=== PATIENT | female | born 1970 | race Caucasian/White ===

== ENCOUNTER 2016-07-02 01:34 | Emergency (ER) | payer OTHER ==
[~2016-07-02] VITALS: Ht 162.6 cm; Wt 53.5 kg
[~2016-07-02 01:34] MED LIST: AZITHROMYCIN250 M1 PO; ESZOPICLONE2 M1 PO; FLOVENT HFA10.6 GM INH; FLUCONAZOLE200 M1 PO; IMITREX100 M1 PO; LEVAQUIN500 M1 PO; LINZESS145 MC1 PO; LUNESTA2 M1 PO; NAPROXEN500 M2 PO; ROXICODONE15 M1 PO; URSODIOL300 M1 PO; VALIUM10 M1 PO; WELLBUTRIN XL300 M2 PO; XANAX1 M1 PO; ZOLOFT100 M1 PO
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
[2016-07-02 02:35] LABS: ABSOLUTE BASOPHIL COUNT 0 /CUMM (0.0-0.2); ABSOLUTE EOSINOPHIL COUNT 0 /CUMM (0.0-0.7); ABSOLUTE GRANULOCYTE CT 4.2 /CUMM (1.4-6.5); ABSOLUTE LYMPH COUNT 2.2 /CUMM (1.2-3.4); ABSOLUTE MONOCYTE COUNT 0.3 /CUMM (0.10-0.60); BASOPHIL % 0.6 % (0.0-2.0); EOSINOPHIL % 0.3 % (0-5); GRANULOCYTE % 61.8 % (42.2-75.2); HEMATOCRIT 40.6 % (37-47); MEAN CORPUSCULAR HGB 30.9 PG (27.0-31.0); MEAN CORPUSCULAR HGB CONC 33.4 G/DL (33.0-37.0); MEAN CORPUSCULAR VOLUME 92.5 FL (81.0-99.0); MEAN PLATELET VOLUME 6.3 FL (7.4-10.4); PLATELET COUNT 304 /CUMM (130-400); RBC DISTRIBUTION WIDTH 13.5 % (11.5-14.5); RED BLOOD CELL CT 4.39 /CUMM (4.20-5.40); WHITE BLOOD CELL COUNT 6.7 /CUMM (4.8-10.8)
[2016-07-02 02:41] VITALS: BP 91/54
[2016-07-02 02:44] LABS: PTT 30 SEC (25-37)
--- NOTE | 2016-07-02 05:05 | CT SCAN REPORT ---
EXAMINATION: CT CHEST, ABDOMEN AND PELVIS WITH CONTRAST CLINICAL INFORMATION: [facility] CT chest 03/05/2016 COMPARISON: None. TECHNIQUE: Multidetector volumetric CT imaging of the chest, abdomen and pelvis was obtained after the administration of 95 mL of intravenous Optiray without immediate adverse reactions. DLP: 377.13 mGy-cm. FINDINGS: CT CHEST: Lungs: The lungs are clear with no evidence of inflammation or nodules. Mediastinum: The mediastinum is normal. Pleura: There is no pleural effusion. No pleural mass or thickening. Axilla: No lymphadenopathy. CT ABDOMEN AND PELVIS: LIVER, GALLBLADDER, AND BILIARY TREE: The liver is normal in size, shape, and attenuation. No focal hepatic lesion or biliary ductal dilatation is present. The gallbladder is unremarkable with no evidence of radiopaque gallstones, gallbladder wall thickening, or obvious pericholecystic inflammatory changes. PANCREAS: No acute change of the pancreas. No mass. No pancreatic duct dilatation. SPLEEN: Spleen normal in size and contour. No focal lesion. ADRENAL GLANDS: Adrenal glands are normal in size. No focal mass. KIDNEYS AND URETERS: The kidneys are normal in size, shape, and attenuation. No hydronephrosis, hydroureter, or calculi seen. No perinephric stranding. BLADDER: Unremarkable. GASTROINTESTINAL TRACT: The small and large bowel are unremarkable. The appendix is unremarkable. MESENTERY: No focal inflammation. No free fluid. No free air. ABDOMINAL WALL: No significant hernia is appreciated. LYMPH NODES: Normal. VASCULAR: Unremarkable. PELVIC VISCERA: Status post hysterectomy. No adnexal abnormality. OSSEOUS STRUCTURES: No acute change. No fracture. Transpedicular screws L5-S1 with bilateral laminectomy. Grade 1 anterolisthesis of L5 on S1. IMPRESSION: Normal CT of chest abdomen and pelvis.
== END 2016-07-02 04:41 ==
LOC: ERH 01:34
PROVIDERS: Emergency Medicine
DX: M25.512 Pain in left shoulder (principal); R10.9 Unspecified abdominal pain; F10.129 Alcohol abuse with intoxication, unspecified; V47.5XXA Car driver injured in collision with fixed or stationary object in traffic accident, initial encounter
CPT/HCPCS: 74177; 80307; 81001; 96374; 96375; G0480; J0131; J2405

== ENCOUNTER 2017-10-18 09:00 | Inpatient (IN) | payer OTHER, MEDICARE ==
[~2017-10-18] VITALS: Ht 165.1 cm; Wt 49.2 kg
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
[2017-10-18 11:02] LABS: ABSOLUTE BASOPHIL COUNT 0.1 /CUMM (0.0-0.2); ABSOLUTE EOSINOPHIL COUNT 0 /CUMM (0.0-0.7); ABSOLUTE GRANULOCYTE CT 2.4 /CUMM (1.4-6.5); ABSOLUTE LYMPH COUNT 1.1 /CUMM (1.2-3.4); ABSOLUTE MONOCYTE COUNT 0.3 /CUMM (0.10-0.60); BASOPHIL % 1.3 % (0.0-2.0); EOSINOPHIL % 1.3 % (0-5); GRANULOCYTE % 60.9 % (42.2-75.2); HEMATOCRIT 39.8 % (37-47); MEAN CORPUSCULAR HGB 31.8 PG (27.0-31.0); MEAN CORPUSCULAR HGB CONC 34.9 G/DL (33.0-37.0); MEAN CORPUSCULAR VOLUME 91.2 FL (81.0-99.0); MEAN PLATELET VOLUME 6.8 FL (7.4-10.4); PLATELET COUNT 325 /CUMM (130-400); RBC DISTRIBUTION WIDTH 12.2 % (11.5-14.5); RED BLOOD CELL CT 4.37 /CUMM (4.20-5.40); WHITE BLOOD CELL COUNT 3.9 /CUMM (4.8-10.8)
--- NOTE | 2017-10-18 11:27 | RADIOLOGY REPORT ---
EXAMINATION: XR CHEST CLINICAL INFORMATION: Cough, malaise COMPARISON: 03/08/2016 chest x-ray, chest CT from 07/02/2016 TECHNIQUE: 2 views of the chest were obtained. FINDINGS: The cardiomediastinal silhouette appears normal. The lungs are clear. No consolidation, pulmonary edema, pleural effusion, pneumothorax. Minor degenerative change of the spine without evidence of acute osseous abnormality. IMPRESSION: No acute abnormality.
--- NOTE | 2017-10-18 13:42 | CT SCAN REPORT ---
EXAMINATION: CT LUMBAR SPINE WITHOUT CONTRAST CLINICAL INFORMATION: Low back pain. COMPARISON: CT of the abdomen and pelvis from 07/02/2016. CT lumbar spine from 03/05/2016. TECHNIQUE: Helical non-contrast CT images were obtained through the lumbar spine and 1.25 and 2.5 mm axial reconstructions were reviewed along with sagittal and coronal MPRs. DLP: 376 mGy-cm FINDINGS: There are 5 nonrib-bearing lumbar type vertebral bodies. Vertebral body height is maintained. There is stable 2 to 3 mm of anterolisthesis of L5 on S1. Otherwise sagittal alignment is maintained. There are stable changes after discectomy, interbody fusion device placement, posterior decompression and posterior instrumented fusion at L5-S1 with posterior instrumented fusion comprised of rods anchored by paired pedicle screws. There is no evidence of loosening along the pedicle screws. There is stable mild subsidence along the endplates with moderate endplate sclerosis, the appearance of which is unchanged from 2016. There is incomplete osseous bridging visualized across the interbody fusion device, stable. Hardware creates streak artifact at this level. The nonsurgical discs spaces are maintained. There is mild endplate spurring at L2-L3. The visualized aorta is normal in caliber. No evidence of adenopathy. The visualized abdominal viscera appear unremarkable. Paraspinal muscle bulk is maintained. The imaged SI joints appear unremarkable. SPINAL LEVELS: T12-L1, L1-L2, L2-L3, L3-L4: No contour abnormality of the discs. No canal or foraminal stenosis. Mild facet hypertrophy at L3-L4. L4-L5: There is fairly extensive streak artifact at this level due to the hardware. A disc bulges visualized without evidence of significant canal or foraminal stenosis. Mild facet hypertrophy. L5-S1: There is streak artifact obscuring the canal. As above there is discectomy, interbody fusion device placement, posterior decompression and posterior instrumented fusion. Minor anterolisthesis is stable. There is asymmetric posterior osteophytic ridging on the right relative to the left which appears to result in mild bony foraminal stenosis on the right which appears unchanged from 2016. IMPRESSION: 1. No acute abnormality. 2. L5-S1: Discectomy, interbody fusion device placement, posterior decompression and posterior instrumented fusion, stable from 2016. There is mild subsidence along the endplates with moderate endplate sclerosis, unchanged. There is a similar amount of osseous bridging across the interbody fusion device. Asymmetric posterior osteophytic ridging on the right results in mild bony right-sided foraminal stenosis, stable. Otherwise the canal and foramina are obscured by streak artifact from the hardware. 3. Elsewhere stable mild multilevel spondylosis.
--- NOTE | 2017-10-18 13:43 | CT SCAN REPORT ---
EXAMINATION: CT HEAD WITHOUT CONTRAST CLINICAL INFORMATION: Headache COMPARISON: 03/05/2016, 07/17/2011, 06/09/2006 TECHNIQUE: Contiguous axial imaging was performed from the skull base to vertex without intravenous administration of contrast. DLP: 605 mGy-cm FINDINGS: There is a small 2 to 3 mm oval focus of density in the left frontal subcortical white matter without surrounding edema. Due to differences in slice selection it is difficult to definitively identify this structure on priors. Otherwise attenuation within the brain is normal. The ventricles, sulci, and extra-axial CSF spaces are normal in caliber and configuration. No extra-axial collection, mass effect, or shift the normally midline structures. No evolving territorial infarct. No acute osseous abnormality. The imaged paranasal sinuses, mastoid air cells and middle ear cavities are clear. The temporomandibular joints articulate normally. The visualized soft tissues appear unremarkable. IMPRESSION: A 2 to 3 mm density in the subcortical left frontal lobe without surrounding edema or mass effect, nonspecific. This may reflect a tiny cavernoma or microhemorrhage. This critical result was communicated with Dr. Solitario at 13:30 on 10/18/2017 and the content and urgency was understood at the time of direct communication.
--- NOTE | 2017-10-18 14:28 | History & Physical ---
Genny Soler 10/18/17 1428: General Information and HPI History of Present Illness: Ms. Ross is a 45-year-old female with a past medical history of chronic back pain status post laminectomy (2014), spinal fusion, recurrent Lyme disease being treated for the last 6 months with doxycycline and weekly penicillin G ( last dose yesterday), Hidalgo's palsy, anxiety, depression, previously admitted for sepsis in 2015 secondary to an infected PICC line who presents to the ED for a headache. Patient reports she has had a headache for the past 3 weeks but states "I'm not a doctor person" therefore it took her up until now to seek medical treatment. Her headaches feels like a heartbeat in her head and it feels like "so much pressure like am going to explode". She reports she had a Botox injection approximately 6 weeks ago in her forehead. She has facial pain, hyperalgesia, and neck pain that is exacerbated by neck flexion and with widening of the jaw. Yesterday she noticed left sided facial drooping and twitches which she reports she normally gets with the Hidalgo's palsy. She has had blurry vision for the past 2 weeks and vertigo for a day and a half. Her vertigo is exacerbated by gabapentin and therefore reports she has stopped taking it. She has diffused joint pain. She reports leg pain up to the waist recently and this morning was on her way to the bathroom her "legs gave out". She reports she feels like she has the flu. Approximately 4 weeks ago she had a tick removed from her umbilicus. For the past 6 months she has been nauseous. She has a bowel movement once every 3 weeks. She has lost 10 pounds in the past few weeks. She has 2 cats in which she cares for herself. In the ED she reports her legs gave out again on her way to the restroom. She received 1 dose of IV Methyprednisolone 125 mg, Ketorolac 30 mg and 1L NS IVF Allergies/Medications Allergies: Coded Allergies: No Known Allergies (03/05/16) Observation Initial Note - I have personally examined LUISITO ROSS on 10/18/17 at 1840. 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 self Services at Home: visiting nurses Primary Language: Irish Review of Systems Review of Systems Constitutional: Reports: see HPI. Exam & Diagnostic Data Last 24 Hrs of Vital Signs/I&O Vital Signs Date Time Temp Pulse Resp B/P B/P Pulse O2 O2 Flow FiO2 Mean Ox Delivery Rate 10/18 1243 97.7 68 18 93/54 99 10/18 0906 98.6 74 18 106/67 98 Room Air Intake & Output 10/18 1600 10/18 0800 / 0000 Intake Total Output Total Balance Patient 108 lb Weight Weight Reported by Patient Measurement Method Physical Exam General Appearance Alert, Oriented X3, Cooperative, No Acute Distress Skin Chest tenderness HEENT Atraumatic, EOMI, Mucous Membr. moist/pink, photosensitivity Neck Supple, No JVD, No thryomegaly, cervical and mandibular lymphadenopathy Cardiovascular Regular Rate, Normal S1, Normal S2, No Murmurs Lungs BL wheezing Abdomen Soft, No Masses, tender to light palpation Neurological Normal Speech, Strength at 5/5 X4 Ext, Normal Tone, Cranial Nerves 3-12 NL, Decreased sensation on left side, 2+ reflexes BUE, absent reflexs BLE Extremities Motor 2/5 BUE, 1/5 BLE Last 24 Hrs of Labs/Riley: Laboratory Tests 10/18/17 1050: Anion Gap 12, Estimated GFR > 60, BUN/Creatinine Ratio 25.0, Glucose 92, Calcium 9.6, Total Bilirubin 0.6, AST 22, ALT 21, Alkaline Phosphatase 37, Total Protein 7.5, Albumin 4.5, Globulin 3.0, Albumin/Globulin Ratio 1.5, TSH &T3 &Free T4 Intrp 1.900, Total Beta HCG NEGATIVE, CBC w Diff NO MAN DIFF REQ, RBC 4.37, MCV 91.2, MCH 31.8 H, MCHC 34.9, RDW 12.2, MPV 6.8 L, Gran % 60.9, Lymphocytes % 28.4, Monocytes % 8.1, Eosinophils % 1.3, Basophils % 1.3, Absolute Granulocytes 2.4, Absolute Lymphocytes 1.1 L, Absolute Monocytes 0.3, Absolute Eosinophils 0 , Absolute Basophils 0.1, ESR Westergren 10, Lyme Disease Antibody Pending 10/18/17 1014: Urine Color YEL, Urine Clarity CLDY H, Urine pH 6.0, Ur Specific [place] 1.025, Urine Protein NEG, Urine Ketones 15 H, Urine Nitrite NEG, Urine Bilirubin NEG@ ICTO, Urine Urobilinogen 0.2, Ur Leukocyte Esterase TRACE H, Ur Microscopic SEDIMENT EXAMINED, Urine WBC 5-10 H, Ur Epithelial Cells MANY H, Urine Bacteria MANY H, Urine Hemoglobin NEG, Urine Glucose NEG Diagnostic Data CXR Results FINDINGS: The cardiomediastinal silhouette appears normal. The lungs are clear. No consolidation, pulmonary edema, pleural effusion, pneumothorax. Minor degenerative change of the spine without evidence of acute osseous abnormality. IMPRESSION: No acute abnormality. Other Results CT HEAD WO IV CONTRAST IMPRESSION: A 2 to 3 mm density in the subcortical left frontal lobe without surrounding edema or mass effect, nonspecific. This may reflect a tiny cavernoma or microhemorrhage. This critical result was communicated with Dr. Solitario at 13:30 on 10/18/2017 and the content and urgency was understood at the time of direct communication. CT LUMB SPINE WO IV CONTRAST IMPRESSION: 1. No acute abnormality. 2. L5-S1: Discectomy, interbody fusion device placement, posterior decompression and posterior instrumented fusion, stable from 2016. There is mild subsidence along the endplates with moderate endplate sclerosis, unchanged. There is a similar amount of osseous bridging across the interbody fusion device. Asymmetric posterior osteophytic ridging on the right results in mild bony right-sided foraminal stenosis, stable. Otherwise the canal and foramina are obscured by streak artifact from the hardware. 3. Elsewhere stable mild multilevel spondylosis. Assessment/Plan Assessment: Ms. Ross is a 45-year-old female with a past medical history of chronic back pain status post laminectomy (2014), spinal fusion, recurrent Lyme disease who presents to the ED with CAMACHO x [address] imaging showed a 2 to 3 mm density in the subcortical left frontal lobe without surrounding edema or mass effect #Headache - DD: subacute hemorrhage, mass, meningitis #Generalized pain and weakness - DD: 2/2 recurrent Lyme, chronic back pain Plan: Place on 23 hour OBS for further evaluation and management Neurochecks every 2 hours MRI brain Monospot test for LAD We will consider a neurosurgery consult pending MRI results Strep pneumonia and legionella urine antigen We will hold off an LP for now because symptoms less likely reflect meningitis We will consider Dexamathasone if signs of cerebral edema We will hold off pharmacologic DVT prophylaxis due to her CT findings We will hold her home antibiotics for now Pain: Hydromorphone Diet: Regular DVT prophylaxis: ALPS Code: FULL As Ranked By This Provider Problem List: 1. Headache Core Measures/Misc (01/28) Acute Coronary Syndrome ACS Diagnosis: No Congestive Heart Failure Congestive Heart Failure Diagnosis No Cerebrovascular Accident CVA/TIA Diagnosis: No VTE (View Protocol) VTE Risk Factors Age>40 No Mechanical VTE Prophylaxis d/t N/A MechProphylax Ordered No VTE Pharm Prophylaxis d/t Medical Contraindication Comment: CT findings Sepsis (View protocol) Sepsis Present: No If YES complete Sepsis Event Note If YES complete Sepsis Event Note Jose Miguel TORIBIO,[facility] 10/18/17 1519: Core Measures/Misc (01/28) Sepsis (View protocol) If YES complete Sepsis Event Note If YES complete Sepsis Event Note Attending MD Review Statement Attending Statement Attending MD Statement: examined this patient, discuss w/resident/PA/REVIT DRAFTER, agreed w/resident/PA/REVIT DRAFTER, discussed with family, reviewed EMR data (avail), discussed with nursing, discussed with case mgmt, reviewed images, amended to note Attending Assessment/Plan: 47 y/o F with pmh sig for chronic back pain status post laminectomy (2014), spinal fusion, Lyme disease, Hidalgo's palsy, anxiety, depression has been kept on multiple antibiotics for treatment of Lyme. Has had multiple testing for Lyme and other tickborne illnesses. Has been admitted to [facility] with prior PICC line related sepsis. Presented this time with the intractable headache with feeling off blurred vision. She claims that she always has joint pains, neck pain, back pain. This headache started about 3 weeks ago. It is more worse over the last couple of days. She also claims that her joints are swollen. She was recently started on rifampin by her doctor for unknown reason. She also gets Bicillin injections on a weekly basis. She was also feeling somewhat weak in her legs and claims that her legs gave out today. She has two cats. CT of the head in the emergency room shows A 2 to 3 mm density in the subcortical left frontal lobe without surrounding edema or mass effect, nonspecific. This may reflect a tiny cavernoma or microhemorrhage. Vital Signs Date Time Temp Pulse Resp B/P B/P Pulse O2 O2 Flow FiO2 Mean Ox Delivery Rate 10/18 1243 97.7 68 18 93/54 99 10/18 0906 98.6 74 18 106/67 98 Room Air on exam; aox3, nad. heent: + enlarged cervical LNs. cv; s1,s2. rrr resp; clear abd; soft, nt,bs+ ext; no edema neuro: Overall decreaed strength in b.l le and absent reflexes. Upper ext Strength 5/5 wih symmetrical reflexes. Meningeal signs negative. Laboratory Tests 10/18 1050 Chemistry Sodium (137 - 145 mmol/L) 141 Potassium (3.5 - 5.1 mmol/L) 4.3 Chloride (98 - 107 mmol/L) 101 Carbon Dioxide (22 - 30 mmol/L) 28 Anion Gap (5 - 16) 12 BUN (7 - 17 mg/dL) 15 Creatinine (0.5 - 1.0 mg/dL) 0.6 Estimated GFR (>60 ml/min) > 60 BUN/Creatinine Ratio (7 - 25 %) 25.0 Glucose (65 - 99 mg/dL) 92 Calcium (8.4 - 10.2 mg/dL) 9.6 Total Bilirubin (0.2 - 1.3 mg/dL) 0.6 AST (14 - 36 U/L) 22 ALT (9 - 52 U/L) 21 Alkaline Phosphatase (<127 U/L) 37 Total Protein (6.3 - 8.2 g/dL) 7.5 Albumin (3.5 - 5.0 g/dL) 4.5 Globulin (1.9 - 4.2 gm/dL) 3.0 Albumin/Globulin Ratio (1.1 - 2.2 %) 1.5 TSH &T3 &Free T4 Intrp (0.270 - 4.20 uIU/mL) 1.900 Total Beta HCG (NEGATIVE) NEGATIVE Hematology CBC w Diff NO MAN DIFF REQ WBC (4.8 - 10.8 /CUMM) 3.9 L RBC (4.20 - 5.40 /CUMM) 4.37 Hgb (12.0 - 16.0 G/DL) 13.9 Hct (37 - 47 %) 39.8 MCV (81.0 - 99.0 FL) 91.2 MCH (27.0 - 31.0 PG) 31.8 H MCHC (33.0 - 37.0 G/DL) 34.9 RDW (11.5 - 14.5 %) 12.2 Plt Count (130 - 400 /CUMM) 325 MPV (7.4 - 10.4 FL) 6.8 L Gran % (42.2 - 75.2 %) 60.9 Lymphocytes % (20.5 - 51.1 %) 28.4 Monocytes % (1.7 - 9.3 %) 8.1 Eosinophils % (0 - 5 %) 1.3 Basophils % (0.0 - 2.0 %) 1.3 Absolute Granulocytes (1.4 - 6.5 /CUMM) 2.4 Absolute Lymphocytes (1.2 - 3.4 /CUMM) 1.1 L Absolute Monocytes (0.10 - 0.60 /CUMM) 0.3 Absolute Eosinophils (0.0 - 0.7 /CUMM) 0 Absolute Basophils (0.0 - 0.2 /CUMM) 0.1 ESR Westergren (0 - 20 MM) 10 Serology Lyme Disease Antibody Pending 10/18 1014 Urines Urine Color (YEL,AMB,STR) YEL Urine Clarity (CLEAR) CLDY H Urine pH (5.0 - 8.0) 6.0 Ur Specific [place] (1.001 - 1.035) 1.025 Urine Protein (NEG,<30 MG/DL) NEG Urine Ketones (NEG) 15 H Urine Nitrite (NEG) NEG Urine Bilirubin (NEG) NEG@ICTO Urine Urobilinogen (0.1 - 1.0 EU/dl) 0.2 Ur Leukocyte Esterase (NEG) TRACE H Ur Microscopic SEDIMENT EXAMINED Urine WBC (0 - 2 /HPF) 5-10 H Ur Epithelial Cells (NONE,FEW) MANY H Urine Bacteria (NEG/NONE) MANY H Urine Hemoglobin (NEG) NEG Urine Glucose (N MG/DL) NEG CT head: A 2 to 3 mm density in the subcortical left frontal lobe without surrounding edema or mass effect, nonspecific. This may reflect a tiny cavernoma or microhemorrhage. CXR: No acute process. CT lumbar spine. IMPRESSION: 1. No acute abnormality. 2. L5-S1: Discectomy, interbody fusion device placement, posterior decompression and posterior instrumented fusion, stable from 2016. There is mild subsidence along the endplates with moderate endplate sclerosis, unchanged. There is a similar amount of osseous bridging across the interbody fusion device. Asymmetric posterior osteophytic ridging on the right results in mild bony right-sided foraminal stenosis, stable. Otherwise the canal and foramina are obscured by streak artifact from the hardware. 3. Elsewhere stable mild multilevel spondylosis. A/P; 47 y/o F with pmh sig for chronic back pain status post laminectomy (2014), spinal fusion, Lyme disease, Hidalgo's palsy, anxiety, depression has been kept on multiple antibiotics for treatment of Lyme. Has had multiple testing for Lyme and other tickborne illnesses. Has been admitted to [facility] with prior PICC line related sepsis, admitted this time with intractable headache with photophobia and head CT showing small subcortical frontal lobe lesion. Meningitis less likley as patient without altered mental state, no meningeal signs and sx have been going from last 3 weeks and severe one x 2 days. Patient admitted to medicine. We'll obtain brain MRI. Pending results, will consider neurosurgical consult. We'll hold off on any steroids for now. Will stop all of her antibiotics that she is taking including doxycycline, tetracycline, azithromycin, rifampin. She also was taking trazodone and gabapentin as needed. That will also be stopped. She does take Valium as needed which can be continued on as-needed basis. We'll check her rapid strep, Monospot tests due to enlarged cervical lymph nodes. We'll try to control her headache with Dilaudid. Will get physical therapy to come and work with her. She will be on mechanical DVT prophylaxis. Full code. Jillian Oliveira MD 10/18/17 7681: General Information and HPI Allergies/Medications Home Med list Diazepam (Valium) 10 MG TABLET 0.5 TAB PO BIDP PRN PAIN (Reported) Doxycycline Hyclate 100 MG TABLET 1 TAB PO BID LYME (Reported) Gabapentin Enacarbil (Horizant) 600 MG TABLET.ER 1 TAB PO TID PAIN (Reported) Rifampin 150 MG CAPSULE 1 TAB PO DAILY LYME (Reported) Tetracycline HCl 250 MG CAPSULE 3 TAB PO BID LYME (Reported) Trazodone HCl 50 MG TABLET 1 TAB PO TID LYME (Reported) Core Measures/Misc (01/28) Sepsis (View protocol) If YES complete Sepsis Event Note If YES complete Sepsis Event Note Resident Review Statement Resident Statement: examined this patient, 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 She comes in for chief complaint of headache. She states that for the past 3 weeks she has experienced headache that she describes as a pressure sensation that feels "like my head is about to explode." She saysthe camacho is all over her head and in also in her face. In addition, her headache is associated with diplopia for the past 2 weeks and vertigo for the last half day. She states that she is photophobic and this a.m. when she went to use the bathroom her legs collapsed under her due to weakness. The headache has been getting worse in intensity the past 3 weeks. In addition she states that she has had about 6 months of nausea and lost 10 pounds in the last few weeks. She also endorses cough and chills without fever or sore throat. Patient has been treated with a very unusual regimen over the last several months. She is currently getting Bicillin injections every week. Additionally she is getting Botox for Hidalgo's palsy, most recent injection about 6 weeks ago. She saw her PCP in [place] yesterday who started regimen of azithromycin, diazepam, doxycycline, Diflucan, gabapentin, rifampin, tetracycline, and trazodone for some kind of Lyme co-infection treatment. Patient states that she is not very compliant w/ her regimen and has taking doxycycline for several months, took 1 dose of rifampin, very infrequently takes gabapentin, infrequently uses medical marijuana, and got penicillin G injection one week ago. Patient brought in results of her tick panel which was negative for Ehrlichia, and babesiosis. She denies IV drug abuse, smoking but does endorse social is of alcohol. She does use medical marijuana. She has 2 cats at home and had a tick removed from her bellybutton about a week ago. Note she has had ICU admission at for sepsis and hx of infected PICC line for abx for Lyme. Physical exam Vitals: 98.6, 68-74, 18, 93/54-106/67, 98% on room air HEENT: Pt photophobic and would not allow for light to be shined in her eyes without looking away. EOMI. CN 3-12 WNL. No facial droop noted. No deviation of tongue or uvula. Sensation symmetric on face. No erythema in pharynx or tonsilar exudates. She does have sig lymphadenopathy in cervical and submandibular region. Cardiovascular: Nml s1/s2; no murmurs Skin: no erythema, rash or wounds present. Respiratory:Wheezy in all lung filds. No crackles GI: BSX4, No tenderness on palpation. EXT:Slightly diminished sensation in bilat LE. Stength 2-3/5 in LE due to pain, Strength 4/5 in UE. NEURO: Cranial nerves II through XII within normal limits-taking into account Botox on forehead. Sensation symmetric and face. Perhaps some diminished sensation in lower extremities. Range of motion normal in all extremities. She did have some weakness due to pain, about 4-5 in upper and lower extremities. No reflexes in knee, but upper extremity reflexes brisk and intact. Negative clonus. Negative Kernig and Brudzinski sign but she does describe pain in her hips when I flexed her leg. Labs: White count 3.9, platelet 325. ESR 10. BMP within normal. Negative LFT, negative TFT, negative beta hCG. UA: Trace leukocyte esterase, ketones positive, 5-10 white blood cell, many epithelial cells, many bacteria. Chest x-ray with no acute intrathoracic pathology [place] CT of head: Showed a 2- 3 mm density in left frontal lobe, possible tiny cavernoma versus microhemorrhage. Assessment: This is a 47-year-old female with past medical history significant for chronic back pain status post laminectomy in 2015, and failure of back surgery with chronic pain and lower extremity, and diagnosis of Lyme disease followed by a complicated treatment regimen for several years. She comes in for chief complaint of headache that seems to be acute on chronic in nature. She saw her PCP last week and had a tick removed. Just in the last 6 weeks she has had Botox in her face, weekly Bicillin injections and yesterday was started on a 5 med antibiotic regimen. With so many recent changes it is difficult to attribute her symptoms of headache and weakness to any single etiology. However, she is afebrile, alert and oriented 3, and without nuchal rigidity. She has no focal neurologic deficits other than weakness on physical exam but CAT scan shows 2-3 millimeter density in left frontal lobe. It is unclear if this CAT scan finding is related to her symptoms as she is describing 6 months of diffuse headache that involves her face and her head. We will further evaluate her symptoms while inpatient on the general medicine floor. Problem list: 1. Headache 2. 2-3 mm density in left frontal lobe 3. Leukopenia 4. Cervical lymphadenopathy 5. History of Lyme disease with Hidalgo's palsy and prolonged unusual treatment regimen 6. Chronic back pain Plan: 1. Headache: Differential diagnosis includes medication side effect,cavernoma w / hemorrhage, migraine, Lyme meningitis, or toxoplasma given that she has cats. She is afebrile, without focal deficits. Her new symptoms are worsening headache and some weakness in her legs. She had no reflexes in her knees but unsure if this is due to back surgery. If her weakness worsens, given recent URI will keep low threshold to workup for demyelinating neuropathy. * Neuro check * Pain regimen with Dilaudid * MRI with and without gadolinium of head * If MRI indicates, we'll obtain neurology or neurosurgical input * We'll defer a lumbar puncture at this time * Avoid pharmacologic prophylaxis * Urine tox 2. Leukopenia: Unsure if this is medication side effect from the numerous meds that she is taking. * Monitor CBC * Note that in ED patient got 125 of IV Solu-Medrol. This will likely confound the picture and subsequent CBCs. * We'll check HIV * Hold off all antibiotics * Blood cultures 2 * Urine culture 3. Lymphadenopathy: Patient has palpable lymphadenopathy that is painful. There is no tonsillar exudate or erythema. She does have chronic cough. This point will hold off all treatment as she has had wide and inconsistent exposure to antibiotics. * Legionella, strep, monospot * Monitor clinically 4. History of Lyme disease: Given history of recent tick bite we will do a Lyme panel. * Hold off on all medications 5. Chronic back pain: * Pain management Regular diet Mechanical prophylaxis Full code
[2017-10-18] MEDS ORDERED: DOXYCYCLINE HY100 M4 PO (16:23)
[2017-10-18] MEDS ORDERED: HORIZANT600 M1 PO (16:23)
[2017-10-18] MEDS ORDERED: RIFAMPIN150 MG PO (16:24)
[2017-10-18] MEDS ORDERED: TETRACYCLINE H250 MG PO (16:24)
[2017-10-18] MEDS ORDERED: TRAZODONE HCL50 M1 PO (16:25)
[2017-10-18 18:10] VITALS: BP 116/70
--- NOTE | 2017-10-18 18:20 | MRI REPORT ---
MR BRAIN WITHOUT AND WITH CONTRAST CLINICAL INFORMATION: Headache. Question bleed on CT. COMPARISON: Head CT performed earlier the same day. TECHNIQUE: MRI of the brain was obtained using routine sequences before and after the intravenous administration of 5 mL of Gadavist. FINDINGS: The small focus of increased density within the left subinsular region appreciated on today's earlier head CT exhibits susceptibility artifact and no associated parenchymal signal abnormality, findings most suggestive of a small focus of cavernoma. No pathologic enhancement and no evidence of acute intracranial hemorrhage. There is no hydrocephalus, extra-axial surface collection, or herniation. No parenchymal signal abnormality. The major flow voids at the skull base are preserved. There is no acute infarct on diffusion-weighted imaging. The midline structures are normal. The cerebellar tonsils are normally positioned. The cerebellum and brainstem are normal. The craniocervical junction is normal. Osseous marrow signal intensity is homogenous. The visualized soft tissues are unremarkable. 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 No pathologic enhancement and no MRI evidence of acute intracranial hemorrhage.
[2017-10-18 23:03] VITALS: BP 100/59
[2017-10-19 05:33] VITALS: BP 93/63
[2017-10-19 06:53] VITALS: BP 93/63
--- NOTE | 2017-10-19 07:08 | PN-Observation ---
Observation Note Observation Note _ I have personally examined LUISITO ROSS. her disposition is uncertain at this time. Before a determination can be made, she requires continued observation for the following reasons headache. Assessment/Plan Medical Assessment: Ms. Ross is a 45-year-old female with a past medical history of chronic back pain status post laminectomy (2014), spinal fusion, recurrent Lyme disease who presents to the ED with CAMACHO x [address] imaging showed a 2 to 3 mm density in the subcortical left frontal lobe without surrounding edema or mass effect #Headache #Generalized pain and weakness Plan: MRI brain showed carvenoma Monospot test negative LP not suspicious for meningitis We will hold off pharmacologic DVT prophylaxis due to her CT findings We will hold her home antibiotics for now Lyme titers positive but given her history of positive Lyme it may be persistently positive in some patient NS IVF @ 50cc/hr Pain: Hydromorphone ID recommendations appreciated Neuro consult Diet: Regular DVT prophylaxis: ALPS Code: FULL Problem List: 1. Headache Subjective Follow-up For: Headache History of Lyme Small cavernoma Subjective: Patient reports she feels the same as yesterday. She has a persistent CAMACHO and refuses to take her pain meds because of poor food intake. She feels as though the pain meds are making her hallucinate Review of Systems Constitutional: Reports: see HPI. Objective Last 24 Hrs of Vital Signs/I&O Vital Signs Date Time Temp Pulse Resp B/P B/P Pulse O2 O2 Flow FiO2 Mean Ox Delivery Rate 10/19 1455 98.2 77 18 96/55 100 Room Air /08 0653 97.8 71 18 93/63 99 Room Air /08 0533 97.8 71 18 93/63 99 Room Air 06/07 2303 98.3 72 18 100/59 100 Room Air 06/07 1810 97.8 85 18 116/70 100 Intake & Output /08 1600 06/08 0800 06/08 0000 Intake Total 640 20 600 Output Total 250 Balance 640 -230 600 Intake, IV 400 20 Intake, Oral 240 0 600 Output, Urine 250 Patient 108 lb 108 lb Weight Weight Reported by Patient Measurement Method Physical Exam General Appearance: Alert, Oriented X3, Cooperative, No Acute Distress Cardiovascular: Regular Rate, Normal S1, Normal S2, No Murmurs Lungs: Clear to Auscultation, Normal Air Movement Abdomen: Normal Bowel Sounds, Soft, No Tenderness Current Medications: Current Medications Sig/Madeleine Start time Last Medication Dose Route Stop Time Status Admin Acetaminophen 650 MG Q6P PRN 10/18 1430 AC PO Dextrose/Sodium 1,000 ML Q20H 10/19 0830 DC 10/19 Chloride IV 0829 Diazepam 5 MG BID PRN 10/18 1615 AC 10/19 PO 0839 Diphenhydramine HCl 25 MG ONCE ONE 10/19 0200 DC 10/19 PO 10/19 0201 0155 Hydromorphone HCl 0.2 MG Q4P PRN 10/18 1430 AC 10/19 IV 1458 Lidocaine 0 .STK-MED ONE 10/19 1321 DC .ROUTE Oxycodone/ 1 TAB Q6P PRN 10/18 1430 AC 10/18 Acetaminophen PO 1854 Patient Medication 1 ED ONE ONE 10/19 0930 DC Teaching ED 10/19 0931 Ramelteon 8 MG 2100 10/18 2100 AC 10/18 PO 2302 Sodium Chloride 1,000 ML Q20H 10/19 0830 CAN IV Last 24 Hrs of Labs/Mics: Laboratory Tests 10/19/17 1410: CSF Glucose 68, CSF Total Protein 32 10/19/17 1410: CSF WBC 2, CSF RBC 3 H, CSF Comment 10/19/17 1315: Fluid WBC Cancelled, Fld Total RBCs Counted Cancelled 10/19/17 1315: Fluid Glucose Cancelled, Fluid Total Protein Cancelled 10/19/17 0940: PT 11.6, INR 1.06 10/19/17 0835: Infectious [place] Titer Cancelled 10/19/17 0601: Anion Gap 11, Estimated GFR > 60, BUN/Creatinine Ratio 21.7, CBC w Diff NO MAN DIFF REQ, RBC 3.85 L, MCV 91.6, MCH 31.4 H, MCHC 34.3, RDW 12.5, MPV 7.4, Gran % 64.5, Lymphocytes % 24.8, Monocytes % 9.6 H, Eosinophils % 0.5, Basophils % 0.6, Absolute Granulocytes 5.2, Absolute Lymphocytes 2.0, Absolute Monocytes 0.8 H, Absolute Eosinophils 0, Absolute Basophils 0 10/18/172044: Infectious [place] Titer NEGATIVE 10/18/172044: HIV 1&2 Ab Western Blot NONREACTIVE Microbiology 10/19 1410 CENT N S: CSF Culture - RES 10/19 1410 CENT N S: Gram Stain - RES 10/19 1315 BODY FLUID: Body Fluid Culture - CAN Cancelled: CSF 10/19 1314 BODY FLUID: Gram Stain - CAN Cancelled: CSF 10/19 2055 BLOOD: Blood Culture - RES 10/18 2044 BLOOD: Blood Culture - RES
--- NOTE | 2017-10-19 07:26 | PN- Student ---
Subjective Subjective: Pt. is a 47 y/o female with a history of prior laminectomy and difficult to treat Lyme disease who presents for worsening headache and new onset leg weakness. She states that the headache began two weeks ago and has become intollerably painful as of the morning of 10/18/17. She had tried over the counter medications as well as medical marijuana, and prescription strength ibuprofen to improve the headache and has seen no improvement. Her headache has begun to radiate to her maxillary sinuses and maxillary gingiva. The headache upon presentation to the ER was 10/10 and throbbing "like a heart beat". Associated with the headache she has been experiencing double vision, increased thirst with increased urination, dry heaving for the last three days, reported light sensitivity, pain with eye movement, decreased appetite, acute exasperation of chronic dry cough, increased tenderness in her neck, and exasperation of her chronic leg pain. She states that she normally has weakness , numbness, and tingling in her lower left leg that has been present since her back surgery in 2017. She is unsure if this weakness is attributed to her diagnosis of Lyme or strictly from the back surgery. As of the morning of she awoke with weakness and pain in both legs and stated that her legs had given out on her that morning when she tried to stand. She said the leg pain had increased to 10/10 as of 10/16/17 and remained high. Baseline bowel movements are approximately once every 2 weeks and this has remained the same throughout her current complaints. She denies any chest pain, palpitations, or shortness of breath. PMHX: Chronic conditions: -Lyme originally diagnosed in 2006. Most recently treated with Bicillin injections once per week. -Benign breast mass 2017 -Chronic dry cough since childhood. Worsens when ill. Surgeries: -Hysterectomy for endometriosis in 2007 -Laminectomy 2016 Current Medications Sig/Madeleine Start time Last Medication Dose Route Stop Time Status Admin Acetaminophen 650 MG Q6P PRN 10/18 1430 AC PO Dextrose/Sodium 1,000 ML Q20H 10/19 0830 AC 10/19 Chloride IV 0829 Diazepam 5 MG BID PRN 10/18 1615 AC 10/19 PO 0839 Diphenhydramine HCl 25 MG ONCE ONE 10/19 0200 DC 10/19 PO 10/19 0201 0155 Hydromorphone HCl 0 .STK-MED ONE 10/18 1610 DC .ROUTE Hydromorphone HCl 0.2 MG Q4P PRN 10/18 1430 AC 10/19 IV 0836 Lidocaine 0 .STK-MED ONE 10/19 1321 DC .ROUTE Oxycodone/ 1 TAB Q6P PRN 10/18 1430 AC 10/18 Acetaminophen PO 1854 Patient Medication 1 ED ONE ONE 10/19 0930 DC Teaching ED 10/19 0931 Ramelteon 8 MG 2100 10/18 2100 AC 10/18 PO 2302 Sodium Chloride 1,000 ML Q20H 10/19 0830 CAN IV Allergies: -Patient states NKDA Social HX: -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 Denies work related injuries. -Denies spending much time hiking or outdoors. -Lives with two indoor cats. -Occasional ETOH use with dinner. -Never smoker. -Denies illegal drug use. Family HX: -Father has a history of lymphoma in the kidneys and is currently receiving chemotherapy. -Mother has history of arthritis and spinal stenosis. -One sister and two half brothers - both healthy. Review of Systems: Denies changes to sense of smell, hearing, taste, vision. Pt. reports prior systolic murmur. Admited to a fever 3 weeks ago that presented with a mildly erythemic rash on her chest at the time, both have since abated. No other noted skin changes or fevers. See HPI for lymphadenopathy, SOB, GI, symptoms. Objective Objective: PE: General: 47 year old female, resting comfortably with family at her bedside. She was conversational, alert and oriented. Vitals: Vital Signs Date Time Temp Pulse Resp B/P B/P Pulse O2 O2 Flow FiO2 Mean Ox Delivery Rate 10/19 1455 98.2 77 18 96/55 100 Room Air / 0653 97.8 71 18 93/63 99 Room Air /08 0533 97.8 71 18 93/63 99 Room Air / 2303 98.3 72 18 100/59 100 Room Air / 1810 97.8 85 18 116/70 100 06/ 1800 96 Room Air Room Air Pupils: PERRLA. Extraocular muscles were intact, pain upon eye movement. Neck and lymphatics: Able to extend, and laterally rotate neck. Patient had limited voluntary range of motion of neck flexion due to pain. Heart: Regular rate and rhythm, no rubs clicks, murmurs or gallops heard. Lungs: Symmetrical chest expansion. Wheezes heard bilaterally. Lymphatics: Bilateral tonsilar lymph node enlargement noted, no tenderness to palpation. No axillary or mamillary lymphatic enlargement noted. Musculoskeletal: 4/5 strength with leg extension and dorsiflexion bilaterally. Wheel Fitter strength was 5/5. Neurologic: Diminished dull sensation along the lateral aspect of the left foot. Sensation to dull was intact along medial foot, and right foot. Assessment/Plan Assessment: 47 y/o female with history of laminectomy and Lyme Disease with a cheif complaint of headache and secondary complaint of new onset leg weakness. Differential diagnosis includes lyme disseminated meningitis infection, atypical migraine, cavernoma, chronic pain syndrome. This is a challenging presentation because of the range of symptoms presented. With regard to the lyme meningitis, she has been treated for lyme within the last 6 months with a number of antibiotics, she complains of photophobia, headache, musculoskeletal pain, and neck pain, but has no neck rigidity, or fever. Migraines were not reported to run in her family, and the presentation of the headache is not typical for migraine. CT scan/MRI were suggestive of a cavernoma which has a small possibility of explaining some sensory motor phenomena, but there was no suggestion of rupture or bleed that could explain her headache. Plan: Due to meningitis being ruled out with current lumbar puncture, CT/MRI ruling out common brain pathology, afebrile status, and normal WBC, recommend neurology consult, consider consult with pain management, and continue to monitor pain control.
[2017-10-19 07:31] LABS: ABSOLUTE BASOPHIL COUNT 0 /CUMM (0.0-0.2); ABSOLUTE GRANULOCYTE CT 5.2 /CUMM (1.4-6.5); RBC DISTRIBUTION WIDTH 12.5 % (11.5-14.5)
[2017-10-19 08:11] LABS: ABSOLUTE EOSINOPHIL COUNT 0 /CUMM (0.0-0.7); ABSOLUTE MONOCYTE COUNT 0.8 /CUMM (0.10-0.60); BASOPHIL % 0.6 % (0.0-2.0); EOSINOPHIL % 0.5 % (0-5); GRANULOCYTE % 64.5 % (42.2-75.2); HEMATOCRIT 35.2 % (37-47); MEAN CORPUSCULAR HGB 31.4 PG (27.0-31.0); MEAN CORPUSCULAR HGB CONC 34.3 G/DL (33.0-37.0); MEAN CORPUSCULAR VOLUME 91.6 FL (81.0-99.0); MEAN PLATELET VOLUME 7.4 FL (7.4-10.4); PLATELET COUNT 311 /CUMM (130-400); RED BLOOD CELL CT 3.85 /CUMM (4.20-5.40)
[2017-10-19 10:14] LABS: PT 11.6 SEC (9.4-12.5)
--- NOTE | 2017-10-19 11:57 | PN- Att Addend ---
Attending Addendum Attending Brief Note Patient seen and examined, not feeling better at all. Still complain of excruciating headache and now having difficulty swallowing. She said that she cannot swallow anything because if she tries to swallow then it comes out and it makes her nauseous. Vital Signs Date Time Temp Pulse Resp B/P B/P Pulse O2 O2 Flow FiO2 Mean Ox Delivery Rate 10/19 0653 97.8 71 18 93/63 99 Room Air 10/19 0533 97.8 71 18 93/63 99 Room Air 10/18 2303 98.3 72 18 100/59 100 Room Air 10/18 1810 97.8 85 18 116/70 100 /07 1800 96 Room Air Room Air 10/18 1613 97.5 78 18 106/59 94 Room Air 10/18 1243 97.7 68 18 93/54 99 on exam; aox3, nad. heent; enlarged cervival LNs.no tonsilar enlargement or erythema noted on pharynx. cv; s1,s2, rrr resp; clear abd; soft, nt, bs+ ext; no edema Laboratory Tests 10/19 10/19 10/19 0940 0835 0601 Chemistry Sodium (137 - 145 mmol/L) 140 Potassium (3.5 - 5.1 mmol/L) 4.0 Chloride (98 - 107 mmol/L) 105 Carbon Dioxide (22 - 30 mmol/L) 25 Anion Gap (5 - 16) 11 BUN (7 - 17 mg/dL) 13 Creatinine (0.5 - 1.0 mg/dL) 0.6 Estimated GFR (>60 ml/min) > 60 BUN/Creatinine Ratio (7 - 25 %) 21.7 Coagulation PT (9.4 - 12.5 SEC) 11.6 INR (0.90 - 1.19) 1.06 Hematology CBC w Diff NO MAN DIFF REQ WBC (4.8 - 10.8 /CUMM) 8.0 RBC (4.20 - 5.40 /CUMM) 3.85 L Hgb (12.0 - 16.0 G/DL) 12.1 Hct (37 - 47 %) 35.2 L MCV (81.0 - 99.0 FL) 91.6 MCH (27.0 - 31.0 PG) 31.4 H MCHC (33.0 - 37.0 G/DL) 34.3 RDW (11.5 - 14.5 %) 12.5 Plt Count (130 - 400 /CUMM) 311 MPV (7.4 - 10.4 FL) 7.4 Gran % (42.2 - 75.2 %) 64.5 Lymphocytes % (20.5 - 51.1 %) 24.8 Monocytes % (1.7 - 9.3 %) 9.6 H Eosinophils % (0 - 5 %) 0.5 Basophils % (0.0 - 2.0 %) 0.6 Absolute Granulocytes (1.4 - 6.5 /CUMM) 5.2 Absolute Lymphocytes (1.2 - 3.4 /CUMM) 2.0 Absolute Monocytes (0.10 - 0.60 /CUMM) 0.8 H Absolute Eosinophils (0.0 - 0.7 /CUMM) 0 Absolute Basophils (0.0 - 0.2 /CUMM) 0 Serology Infectious Becker Titer Cancelled 10/18 10/18 10/18 2045 2045 1614 Serology HIV 1&2 Ab Western Blot (NONREACTIVE) NONREACTIVE Infectious Becker Titer (NEGATIVE) NEGATIVE Toxicology Methadone Screen Cancelled Barbiturate Screen Cancelled Ur Phencyclidine Scrn Cancelled Amphetamines Screen Cancelled U Benzodiazepines Scrn Cancelled Urine Cocaine Screen Cancelled Urine Cannabis Screen Cancelled A/P; 47 y/o F with pmh sig for chronic back pain status post laminectomy (2014), spinal fusion, Lyme disease, Hidalgo's palsy, anxiety, depression has been kept on multiple antibiotics for treatment of Lyme. Has had multiple testing for Lyme and other tickborne illnesses. Has been admitted to [facility] with prior PICC line related sepsis, admitted this time with intractable headache with photophobia and head CT showing small subcortical frontal lobe lesion. MRI brain showed The small focus of increased density within the left subinsular region appreciated on today's earlier head CT exhibits susceptibility artifact and no associated parenchymal signal abnormality, findings most suggestive of a small cavernoma. Yesterday we did not proceed with LP because she did not have any meningeal signs. Today she remains excruciating headache. We will obtain an CT to exclude [facility] to explore those lymph nodes. So far her rapid strep, Legionella and Monospot are negative. We'll obtain urology and infectious disease consults. Patient does take Dilaudid. We'll try a nonnarcotic regimen. We'll try on clear liquid diet and if she is able to swallow then will advance her diet. DVt px; mechanical.
--- NOTE | 2017-10-19 14:15 | CT SCAN REPORT ---
EXAMINATION: CT SOFT TISSUE NECK WITH CONTRAST CLINICAL INFORMATION: Large lymph node. Dysphagia and odynophagia. COMPARISON: CT scan of the neck 03/05/2016. TECHNIQUE: Following the intravenous administration of 94 mL of Optiray 320, helical imaging was performed in the axial plane with generation of coronal and sagittal reformatted images. BB markers were placed over the regions of interest. DLP: 306.38 mGy-cm. FINDINGS: There is no cervical lymphadenopathy. There are multiple small lymph nodes at multiple levels in the neck bilaterally. The BB markers are positioned over the bilateral submandibular glands, which are symmetrically mildly prominent, and relatively similar compared to the prior study. The parotid glands normal in size; there is a small amount of fat in the left parotid gland. No contour abnormality or pathologic enhancement is seen within the oral cavity or pharyngeal mucosal space. There is relative paucity of fat throughout the neck and superior chest, similar compared to the prior study. The laryngeal structures are normal. The parapharyngeal fat is preserved. There is good opacification of the vascular structures. The left common carotid and brachiocephalic arteries have a common origin which is a normal variant. No extra mucosal soft tissue mass or fluid collection is seen. No retropharyngeal fluid collection is seen. The thyroid gland is normal in size. There are small areas of low attenuation in both lobes measuring up to 0.2 cm. The superior mediastinum is unremarkable. The lung apices are clear. The mastoid air cells and visualized portions of the paranasal sinuses are well-aerated. The temporomandibular joints are normal. No periapical disease is identified. There are mild spondylitic changes in the spine at the level of C4-C5 and C5-C6. The imaged portions of the brain parenchyma are unremarkable. IMPRESSION: 1. No cervical lymphadenopathy and no masses are demonstrated in the mediastinum or chest. 2. BB markers are positioned over the bilateral submandibular glands which are slightly symmetrically prominent, unchanged.
[2017-10-19 14:55] VITALS: BP 96/55
--- NOTE | 2017-10-19 15:26 | Patient Discharge Instructions ---
Discharge Instructions General Discharge Information You were seen/treated for: Headache You had these procedures: Lumbar puncture Special Instructions: Please follow up with your PCP and neurologist within one week of discharge. Diet Continue normal diet: Yes Activity Full Activity/No Limits: Yes Other activity limits: As tolerated Acute Coronary Syndrome Inclusion Criteria At DC or during hospital stay patient has or had the following: ACS DIAGNOSIS No Discharge Core Measures Meds if any: Prescribed or Continued at Discharge Meds if any: NOT Prescribed or Continued at Discharge Congestive Heart Failure Inclusion Criteria At DC or during hospital stay patient has or had the following: CHF DIAGNOSIS No Discharge Core Measures Meds if any: Prescribed or Continued at Discharge Meds if any: NOT Prescribed or Continued at Discharge Cerebrovascular accident Inclusion Criteria At DC or during hospital stay patient has or had the following: CVA/TIA Diagnosis No Discharge Core Measures Meds if any: Prescribed or Continued at Discharge Meds if any: NOT Prescribed or Continued at Discharge Venous thromboembolism Inclusion Criteria VTE Diagnosis No VTE Type NONE VTE Confirmed by (Test) NONE Discharge Core Measures - Per Current guidelines, there needs to be overlap - treatment for the first 5 days of Warfarin therapy. - If discharged on Warfarin prior to 5 days of - overlap therapy, the patient will need to be - assessed for post discharge needs including - *Post discharge parental anticoagulation - *Warfarin and/or parental anticoagulation education - *Follow up date to check INR post discharge At least 5 days overlap therapy as Inpatient No Meds if any: Prescribed or Continued at Discharge Note: Overlap Therapy is Warfarin and Anticoagulant Meds if any: NOT Prescribed or Continued at Discharge
--- NOTE | 2017-10-19 16:09 | Cons- Infect Disease ---
General Information and HPI Consulting Request Date of Consult: 10/19/17 Requested By: Sendy Gillespie MD Reason for Consult: Rule out Lyme disease Source of Information: patient, old records History of Present Illness: This is a 47-year-old woman with a history of chronic back pain despite a laminectomy nearly 3 years prior to admission, with residual left leg weakness, Lyme disease, diagnosed 2 years prior to admission and treated with multiple different antibiotic regimens including intermittent Doxycycline and, more recently, weekly IV Penicillin, hospitalized 20 months prior to admission with Acinetobacter line sepsis secondary to a PICC that had been placed 2 weeks earlier for IV Ceftriaxone, recently begun on Rifampin, Tetracycline and Azithromycin by her primary care physician for unclear reasons, admitted on October 18 after presenting to the emergency room with body aches, headaches, cough and vomiting. On admission she was afebrile. Laboratory data revealed a white blood cell count of 4000, ESR 10, BUN/creatinine 15 and 0.6, with normal liver enzymes. Urinalysis 5-10 WBCs. Chest x-ray was negative. CT of the lumbar spine was negative for any acute process. CT of the head revealed a 2-3 mm density in the subcortical left frontal lobe. 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 She was followed off antibiotics and has remained afebrile since admission. She underwent an LP earlier today, which was negative. Presently she complains of chronic complaints including headache, but is anxious to be discharged. Allergies/Medications Allergies: Coded Allergies: No Known Allergies (03/05/16) Home Med List: Diazepam (Valium) 10 MG TABLET 0.5 TAB PO BIDP PRN PAIN (Reported) Doxycycline Hyclate 100 MG TABLET 1 TAB PO BID LYME (Reported) Gabapentin Enacarbil (Horizant) 600 MG TABLET.ER 1 TAB PO TID PAIN (Reported) Rifampin 150 MG CAPSULE 1 TAB PO DAILY LYME (Reported) Tetracycline HCl 250 MG CAPSULE 3 TAB PO BID LYME (Reported) Trazodone HCl 50 MG TABLET 1 TAB PO TID LYME (Reported) Past History Travel History Traveled to [place] past 21 day No Medical History Blood Transfusion Hx: No Neurological: left Hidalgo's palsy EENT: NONE Cardiovascular: NONE Respiratory: NONE Gastrointestinal: NONE Hepatic: NONE Renal: NONE Musculoskeletal: chronic back pain Psychiatric: anxiety, depression Endocrine: NONE Cancer(s): NONE 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 Home Who Do You Live With? self Services at Home: visiting nurses Primary Language: Japanese Smoking Status: Former Smoker Review of Systems Review of Systems All Other Systems: Reviewed and Negative Exam & Diagnostic Data Last 24 Hrs of Vital Signs/I&O Vital Signs Date Time Temp Pulse Resp B/P B/P Pulse O2 O2 Flow FiO2 Mean Ox Delivery Rate 10/19 1455 98.2 77 18 96/55 100 Room Air 10/19 0653 97.8 71 18 93/63 99 Room Air /08 0533 97.8 71 18 93/63 99 Room Air / 2303 98.3 72 18 100/59 100 Room Air 10/18 1810 97.8 85 18 116/70 100 /07 1800 96 Room Air Room Air 10/18 1613 97.5 78 18 106/59 94 Room Air Intake & Output 10/19 1600 08 0800 /08 0000 Intake Total 640 20 600 Output Total 250 Balance 640 -230 600 Intake, IV 400 20 Intake, Oral 240 0 600 Output, Urine 250 Patient 108 lb 108 lb Weight Weight Reported by Patient Measurement Method Physical Exam Other Physical Findings: She is awake and alert in no acute distress. She is afebrile. Skin reveals no rash. HEENT exam is negative. Neck is supple with bilateral enlarged submandibular glands, with no overlying inflammation and no tenderness to palpation. Lungs scattered wheezes on the left. Heart regular rhythm with no murmur. Abdomen is soft, nontender with positive bowel sounds. Back no CVA tenderness. Extremities no cyanosis, clubbing or edema. Neuro mild weakness in the left lower extremity. Last 24 Hours of Lab Results: Laboratory Tests 10/19 10/19 10/19 10/19 10/19 1410 1410 1315 1315 0940 Coagulation PT (9.4 - 12.5 SEC) 11.6 INR (0.90 - 1.19) 1.06 Other Body Source Fluid WBC Cancelled Fld Total RBCs Counted Cancelled Fluid Glucose Cancelled Fluid Total Protein Cancelled CSF WBC (0 - 5 /CUMM) 2 CSF RBC (-0 /CUMM) 3 H CSF Comment CSF Glucose (40 - 70 mg/dL) 68 CSF Total Protein (12 - 60 mg/dL) 32 10/19 10/19 10/18 0835 [id number] Chemistry Sodium (137 - 145 mmol/L) 140 Potassium (3.5 - 5.1 mmol/L) 4.0 Chloride (98 - 107 mmol/L) 105 Carbon Dioxide (22 - 30 mmol/L) 25 Anion Gap (5 - 16) 11 BUN (7 - 17 mg/dL) 13 Creatinine (0.5 - 1.0 mg/dL) 0.6 Estimated GFR (>60 ml/min) > 60 BUN/Creatinine Ratio (7 - 25 %) 21.7 Hematology CBC w Diff NO MAN DIFF REQ WBC (4.8 - 10.8 /CUMM) 8.0 RBC (4.20 - 5.40 /CUMM) 3.85 L Hgb (12.0 - 16.0 G/DL) 12.1 Hct (37 - 47 %) 35.2 L MCV (81.0 - 99.0 FL) 91.6 MCH (27.0 - 31.0 PG) 31.4 H MCHC (33.0 - 37.0 G/DL) 34.3 RDW (11.5 - 14.5 %) 12.5 Plt Count (130 - 400 /CUMM) 311 MPV (7.4 - 10.4 FL) 7.4 Gran % (42.2 - 75.2 %) 64.5 Lymphocytes % (20.5 - 51.1 %) 24.8 Monocytes % (1.7 - 9.3 %) 9.6 H Eosinophils % (0 - 5 %) 0.5 Basophils % (0.0 - 2.0 %) 0.6 Absolute Granulocytes (1.4 - 6.5 /CUMM) 5.2 Absolute Lymphocytes (1.2 - 3.4 /CUMM) 2.0 Absolute Monocytes (0.10 - 0.60 /CUMM) 0.8 H Absolute Eosinophils (0.0 - 0.7 /CUMM) 0 Absolute Basophils (0.0 - 0.2 /CUMM) 0 Serology Infectious [place] Titer (NEGATIVE) Cancelled NEGATIVE 10/18 1614 Serology HIV 1&2 Ab Western Blot (NONREACTIVE) NONREACTIVE Toxicology Methadone Screen Cancelled Barbiturate Screen Cancelled Ur Phencyclidine Scrn Cancelled Amphetamines Screen Cancelled U Benzodiazepines Scrn Cancelled Urine Cocaine Screen Cancelled Urine Cannabis Screen Cancelled Last 24 Hours of [place] Results: Blood cultures 2 October 18 negative Urine culture October 18 negative Throat culture October 18 mixed tonja with quick strep negative Urine strep pneumo antigen and Legionella antigen October 18 negative CSF culture pending, with gram stain revealing rare white blood cells and no organisms Diagnostic Data Recent Imaging Findings: Chest x-ray negative. CT of the lumbar spine negative for any acute process. CT of the head revealed a 2-3 mm density in the subcortical left frontal lobe. 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 CT of the neck October 19 revealed no cervical adenopathy and no masses in the mediastinum or chest; bilateral submandibular glands slightly symmetrically prominent, unchanged from the previous study of February 2016 Assessment/Plan Assessment/Plan Impression: This is a 47-year-old woman with a history of chronic back pain, status post laminectomy, with residual left leg weakness, Lyme disease, diagnosed 2 years prior to admission and treated with multiple different antibiotic regimens, admitted on October 18 after presenting to the emergency room with body aches, headaches, cough and vomiting, found to be afebrile with a normal white blood cell count, and with a CT of the head, MRI of the head and lumbar puncture all negative for any acute process. The etiology of her multiple nonspecific complaints is unclear. Her symptoms are not suggestive of any particular stage of Lyme disease and, as discussed, the positive Lyme titer is of little value as, once positive, it typically will stay positive forever and is, therefore, not useful in diagnosing recurrent episodes of Lyme disease. Her treatment for Lyme disease has been unorthodox as there is no data to support long-term antibiotics for Lyme disease and, at this point, it would be best to continue to follow her off antibiotics as some of her symptoms could well be secondary to her medications. Suggestion: 1. Await Neurology input regarding her MRI findings 2. Continue to follow off antibiotics Consult Acknowledgment - Thank you for your consult request.
--- NOTE | 2017-10-19 16:20 | INTERVENTIONAL RADIOLOGY RPT ---
CLINICAL HISTORY: The patient is a 47 years old female with headaches and history of Lyme disease with concern for Lyme meningitis, who presents to Interventional Radiology for fluoroscopically-guided lumbar puncture. PROCEDURES: Fluoroscopically-guided lumbar puncture. PHYSICIANS: Dr. Rabia Castro (attending). MEDICATIONS: Lidocaine 1%, 2 mL SQ. CONTRAST: None FLUOROSCOPY TIME: 0.3 DAP: 3.6 uGym2 COMPLICATIONS: None ESTIMATED BLOOD LOSS: <5 mL SPECIMENS: 8 mL CSF. Specimens were appropriately labeled and sent to the laboratory for evaluation with request to inform the referring physician of results. IMPLANT: None SITE MARKING: As part of the preprocedure verification policy, a site marking procedure was initiated. Due to the nature the procedure, the insertion site could not be predetermined thus invoking the policy of exemption to site laterality and marking. Insertion site marking was performed in the procedure room in conjunction with imaging confirmation. PROCEDURE NOTE: Informed consent was obtained from the patient prior to the procedure. During this process, the procedure and potential alternatives were explained along with the intended outcome and benefits. The risks of the procedure, including the possibility of an unsuccessful procedure, as well as the risk of not doing the procedure, were discussed. The patient was given the opportunity to ask questions regarding the procedure and appeared competent to make decisions. A signed consent form documenting this discussion was placed in the medical record. A time-out procedure was performed. Appropriate preprocedure medical history and imaging studies were reviewed. A time-out procedure was performed. The patient was placed prone on the fluoroscopy table. Fluoroscopic images of the lumbar spine were obtained to localize the L3-L4 level. The patient's back was prepped and draped in the standard sterile fashion. All elements of maximal sterile barrier technique followed including use of cap, mask, sterile gown, sterile gloves, a sterile full body drape and hand hygiene. Also followed skin preparation with Betadine for cutaneous antisepsis, and sterile ultrasound preparation with sterile gel and probe cover when applicable. 1% lidocaine was used to obtain local anesthesia the skin and deeper tissues. A 22-gauge Sprotte needle was then passed through the introducer needle into the spinal canal, until CSF flowed. CSF was collected and sent for requested laboratory analysis. The spinal needle was removed and a sterile dressing applied. The patient tolerated the procedure well. FINDINGS: Clear CSF. IMPRESSION: Fluoroscopic-guided lumbar puncture as described. PLAN: The patient was stable after the procedure and was transferred to the interventional recovery area. The patient will be transferred to the floor.
--- NOTE | 2017-10-19 17:21 | Cons- Neurology ---
General Information and HPI Consulting Request Date of Consult: 10/19/17 Requested By: Sendy Gillespie MD Reason for Consult: Abnormal CT scan, prolonged headache Source of Information: patient, old records Exam Limitations: no limitations History of Present Illness: 47-year-old woman admitted yesterday due to a constant severe headache of 2 weeks' duration. Quality is throbbing, holo-cranial, associated nausea and vomiting as well as photophobia and sonophobia. Headache seemed worse following a lumbar puncture but she does not describe a positional change at this point in time, equally bad lying down and sitting up. History of migraine without aura treated in the past with Imitrex which she found ineffective. 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 Received 1 dose of IV Methyprednisolone 125 mg, Ketorolac 30 mg and 1L NS IVF. CSF exam today normal, protein 32, glucose 68, WBC 2, RBC 3, Gram stain no organisms seen, culture pending Lyme antibody 4.32, Western blot pending The initial CT scan disclosed 2-3 mm abnormality in the sub-insular region on the left and consultation was requested. Since the consult was placed she has undergone MRI is standing and the lesion was low intensity on GRE suggesting a small cavernoma. On my review of the images there may be a small contributing vessel. Allergies/Medications Allergies: Coded Allergies: No Known Allergies (03/05/16) Home Med List: Diazepam (Valium) 10 MG TABLET 0.5 TAB PO BIDP PRN PAIN (Reported) Doxycycline Hyclate 100 MG TABLET 1 TAB PO BID LYME (Reported) Gabapentin Enacarbil (Horizant) 600 MG TABLET.ER 1 TAB PO TID PAIN (Reported) Rifampin 150 MG CAPSULE 1 TAB PO DAILY LYME (Reported) Tetracycline HCl 250 MG CAPSULE 3 TAB PO BID LYME (Reported) Trazodone HCl 50 MG TABLET 1 TAB PO TID LYME (Reported) Current Medications: Current Medications Sig/Madeleine Start time Last Medication Dose Route Stop Time Status Admin Acetaminophen 650 MG Q6P PRN 10/18 1430 AC PO Dextrose/Sodium 1,000 ML Q20H 06/08 0830 DC 10/19 Chloride IV 0829 Diazepam 5 MG BID PRN 10/18 1615 AC 10/19 PO 0839 Diphenhydramine HCl 25 MG ONCE ONE 10/19 0200 DC / PO 10/19 0201 0155 Hydromorphone HCl 0.2 MG Q4P PRN 10/18 1430 AC 10/19 IV 1458 Lidocaine 0 .STK-MED ONE 10/19 1321 DC .ROUTE Oxycodone/ 1 TAB Q6P PRN 10/18 1430 AC 10/18 Acetaminophen PO 1854 Patient Medication 1 ED ONE ONE 10/19 0930 DC Teaching ED 10/19 0931 Ramelteon 8 MG 2100 10/18 2100 AC 10/18 PO 2302 Sodium Chloride 1,000 ML Q20H 10/19 0830 CAN IV Review of Systems Review of Systems: ROS: A complete medical systems review was obtained. She complains of chronic back pain, weakness in the legs left more than right. Visual scintillations have been occurring, dizziness. Nausea of several months duration, episodic headaches in the past. No other pertinent complaints were found. 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 Home Who Do You Live With? self Services at Home: visiting nurses Primary Language: Divehi Smoking Status: Former Smoker Exam & Diagnostic Data Vital Signs and I&O Vital Signs Date Time Temp Pulse Resp B/P B/P Pulse O2 O2 Flow FiO2 Mean Ox Delivery Rate 10/19 1455 98.2 77 18 96/55 100 Room Air 10/19 0653 97.8 71 18 93/63 99 Room Air / 0533 97.8 71 18 93/63 99 Room Air / 2303 98.3 72 18 100/59 100 Room Air 10/18 1810 97.8 85 18 116/70 100 06/07 1800 96 Room Air Room Air Intake & Output 10/19 1600 10/19 0800 10/19 0000 Intake Total 640 20 600 Output Total 250 Balance 640 -230 600 Intake, IV 400 20 Intake, Oral 240 0 600 Output, Urine 250 Patient 108 lb 108 lb Weight Weight Reported by Patient Measurement Method Physical Exam: On exam the patient appeared generally well medically and in modest distress. No nuchal rigidity Mental status: Alert, attentive, fully oriented, no language errors, recall and general fund of knowledge seem intact Funduscopic poorly visualized due to photophobia, small pupils and ambient light , no gross abnormalities Visual hector full, Eye movements full without nystagmus, pupils 3mm equal round and reactive to light. Facial movement normal bilaterally Facial sensation normal bilaterally Hearing intact bilaterally Uvula elevates midline Tongue protrusion is midline Shoulder shrug symmetric Motor power and tone normal in both upper extremities, less than antigravity left leg and just 3/5 right leg, better power at ankle on right, tone normal Sensation intact to primary modes Tendon reflexes normal and symmetric at elbows, absent at knees and ankles, without pathologic signs Coordination no ataxia upper extremities Gait [testing deferred] Last 48 Hours of Lab Results: Laboratory Tests 10/19 10/19 10/19 10/19 10/19 1410 1410 1315 1315 0940 Coagulation PT (9.4 - 12.5 SEC) 11.6 INR (0.90 - 1.19) 1.06 Other Body Source Fluid WBC Cancelled Fld Total RBCs Counted Cancelled Fluid Glucose Cancelled Fluid Total Protein Cancelled CSF WBC (0 - 5 /CUMM) 2 CSF RBC (-0 /CUMM) 3 H CSF Comment CSF Glucose (40 - 70 mg/dL) 68 CSF Total Protein (12 - 60 mg/dL) 32 10/19 10/19 10/18 0835 0601 2045 Chemistry Sodium (137 - 145 mmol/L) 140 Potassium (3.5 - 5.1 mmol/L) 4.0 Chloride (98 - 107 mmol/L) 105 Carbon Dioxide (22 - 30 mmol/L) 25 Anion Gap (5 - 16) 11 BUN (7 - 17 mg/dL) 13 Creatinine (0.5 - 1.0 mg/dL) 0.6 Estimated GFR (>60 ml/min) > 60 BUN/Creatinine Ratio (7 - 25 %) 21.7 Hematology CBC w Diff NO MAN DIFF REQ WBC (4.8 - 10.8 /CUMM) 8.0 RBC (4.20 - 5.40 /CUMM) 3.85 L Hgb (12.0 - 16.0 G/DL) 12.1 Hct (37 - 47 %) 35.2 L MCV (81.0 - 99.0 FL) 91.6 MCH (27.0 - 31.0 PG) 31.4 H MCHC (33.0 - 37.0 G/DL) 34.3 RDW (11.5 - 14.5 %) 12.5 Plt Count (130 - 400 /CUMM) 311 MPV (7.4 - 10.4 FL) 7.4 Gran % (42.2 - 75.2 %) 64.5 Lymphocytes % (20.5 - 51.1 %) 24.8 Monocytes % (1.7 - 9.3 %) 9.6 H Eosinophils % (0 - 5 %) 0.5 Basophils % (0.0 - 2.0 %) 0.6 Absolute Granulocytes (1.4 - 6.5 /CUMM) 5.2 Absolute Lymphocytes (1.2 - 3.4 /CUMM) 2.0 Absolute Monocytes (0.10 - 0.60 /CUMM) 0.8 H Absolute Eosinophils (0.0 - 0.7 /CUMM) 0 Absolute Basophils (0.0 - 0.2 /CUMM) 0 Serology Infectious [place] Titer (NEGATIVE) Cancelled NEGATIVE 10/18 10/18 2045 1614 Serology HIV 1&2 Ab Western Blot (NONREACTIVE) NONREACTIVE Toxicology Methadone Screen Cancelled Barbiturate Screen Cancelled Ur Phencyclidine Scrn Cancelled Amphetamines Screen Cancelled U Benzodiazepines Scrn Cancelled Urine Cocaine Screen Cancelled Urine Cannabis Screen Cancelled 10/18 10/18 1050 1022 Chemistry Sodium (137 - 145 mmol/L) 141 Potassium (3.5 - 5.1 mmol/L) 4.3 Chloride (98 - 107 mmol/L) 101 Carbon Dioxide (22 - 30 mmol/L) 28 Anion Gap (5 - 16) 12 BUN (7 - 17 mg/dL) 15 Creatinine (0.5 - 1.0 mg/dL) 0.6 Estimated GFR (>60 ml/min) > 60 BUN/Creatinine Ratio (7 - 25 %) 25.0 Glucose (65 - 99 mg/dL) 92 Calcium (8.4 - 10.2 mg/dL) 9.6 Total Bilirubin (0.2 - 1.3 mg/dL) 0.6 AST (14 - 36 U/L) 22 ALT (9 - 52 U/L) 21 Alkaline Phosphatase (<127 U/L) 37 Total Protein (6.3 - 8.2 g/dL) 7.5 Albumin (3.5 - 5.0 g/dL) 4.5 Globulin (1.9 - 4.2 gm/dL) 3.0 Albumin/Globulin Ratio (1.1 - 2.2 %) 1.5 TSH &T3 &Free T4 Intrp (0.270 - 4.20 uIU/mL) 1.900 Total Beta HCG (NEGATIVE) NEGATIVE Hematology CBC w Diff NO MAN DIFF REQ WBC (4.8 - 10.8 /CUMM) 3.9 L RBC (4.20 - 5.40 /CUMM) 4.37 Hgb (12.0 - 16.0 G/DL) 13.9 Hct (37 - 47 %) 39.8 MCV (81.0 - 99.0 FL) 91.2 MCH (27.0 - 31.0 PG) 31.8 H MCHC (33.0 - 37.0 G/DL) 34.9 RDW (11.5 - 14.5 %) 12.2 Plt Count (130 - 400 /CUMM) 325 MPV (7.4 - 10.4 FL) 6.8 L Gran % (42.2 - 75.2 %) 60.9 Lymphocytes % (20.5 - 51.1 %) 28.4 Monocytes % (1.7 - 9.3 %) 8.1 Eosinophils % (0 - 5 %) 1.3 Basophils % (0.0 - 2.0 %) 1.3 Absolute Granulocytes (1.4 - 6.5 /CUMM) 2.4 Absolute Lymphocytes (1.2 - 3.4 /CUMM) 1.1 L Absolute Monocytes (0.10 - 0.60 /CUMM) 0.3 Absolute Eosinophils (0.0 - 0.7 /CUMM) 0 Absolute Basophils (0.0 - 0.2 /CUMM) 0.1 ESR Westergren (0 - 20 MM) 10 Serology Lyme Disease Antibody (RATIO) 4.32 *H Lyme Ab (Western Blot) Pending Lyme IgG 18 kDa Band Pending Lyme IgG 23 kDa Band Pending Lyme IgG 28 kDa Band Pending Lyme IgG 30 kDa Band Pending Lyme IgG 39 kDa Band Pending Lyme IgG 41 kDa Band Pending Lyme IgG 45 kDa Band Pending Lyme IgG 58 kDa Band Pending Lyme IgG 66 kDa Band Pending Lyme IgG 93 kDa Band Pending Lyme IgM (Western Blot) Pending Lyme IgM 23 kDa Band Pending Lyme IgM 39 kDa Band Pending Lyme IgM 41 kDa Band Pending 10/18 1014 Toxicology Urine Opiates Screen (>2000 NG/ML) < 100 Methadone Screen (>300 NG/ML) < 40 Barbiturate Screen (>200 NG/ML) < 60 Ur Phencyclidine Scrn (>25 NG/ML) < 6.00 Amphetamines Screen (>1000 NG/ML) 144 U Benzodiazepines Scrn (>200 NG/ML) > 800 H Urine Cocaine Screen (>300 NG/ML) < 50 Urine Cannabis Screen (>50 NG/ML) 78.90 H Urines Urine Color (YEL,AMB,STR) YEL Urine Clarity (CLEAR) CLDY H Urine pH (5.0 - 8.0) 6.0 Ur Specific [place] (1.001 - 1.035) 1.025 Urine Protein (NEG,<30 MG/DL) NEG Urine Ketones (NEG) 15 H Urine Nitrite (NEG) NEG Urine Bilirubin (NEG) NEG@ICTO Urine Urobilinogen (0.1 - 1.0 EU/dl) 0.2 Ur Leukocyte Esterase (NEG) TRACE H Ur Microscopic SEDIMENT EXAMINED Urine WBC (0 - 2 /HPF) 5-10 H Ur Epithelial Cells (NONE,FEW) MANY H Urine Bacteria (NEG/NONE) MANY H Urine Hemoglobin (NEG) NEG Urine Glucose (N MG/DL) NEG Imaging/Other Studies: Brain MRI: The small focus of increased density within the left subinsular region appreciated on today's earlier head CT exhibits susceptibility artifact and no associated parenchymal signal abnormality, findings most suggestive of a small cavernoma. No pathologic enhancement and no MRI evidence of acute intracranial hemorrhage. CT scan brain: A 2 to 3 mm density in the subcortical left frontal lobe without surrounding edema or mass effect, nonspecific. This may reflect a tiny cavernoma or microhemorrhage. Assessment/Plan Assessment: Headache, migrainous type, prolonged. Would approach therapeutically as intractable migraine status no indication of any intracranial abnormality causing the headache, no sign of infection, the small cavernoma is an incidental finding and would not cause these symptoms Recommendations: Continue hydration with IV fluids Would repeat IV methylprednisolone 250 mg every 6 hours until headache resolves or for 24 hours IV Reglan 20 MG, IV magnesium, IV Depakote 1000 MG can all be used sequentially in an attempt to "break" the ongoing headache Ibuprofen 800 MG every 8 hours and Zofran 8 MG every 8 hours for the nausea as baseline treatment for the headache Consult Acknowledgment - Thank you for your consult request.
[2017-10-19 21:36] VITALS: BP 100/55
[2017-10-20 06:00] VITALS: BP 138/70; BP 94/54
--- NOTE | 2017-10-20 08:01 | PN- Housestaff ---
Subjective Follow-up For: headache Subjective: patient seen and examined. Still complains of a headache 12/21 and that nothing has helped her so far. Wishes to go home and follow up with her PCP and Dr Diego as an outpatient. Refuses the steroids as the IV machine constantly beeps and interrupted her sleep. Review of Systems Constitutional: Reports: no symptoms. Objective Last 24 Hrs of Vital Signs/I&O Vital Signs Date Time Temp Pulse Resp B/P B/P Pulse O2 O2 Flow FiO2 Mean Ox Delivery Rate 10/20 599 97.6 70 20 94/54 97 Room Air 10/19 2136 98.3 69 18 100/55 98 /08 1455 98.2 77 18 96/55 100 Room Air Intake & Output 10/20 1600 10/20 0800 10/20 0000 Intake Total 200 Output Total Balance 200 Intake, IV 200 Patient 109 lb Weight Physical Exam General Appearance: Alert, Oriented X3, Cooperative, Mild Distress Skin: No Rashes, No Breakdown Skin Temp/Moisture Exam: Warm/Dry Sepsis Skin Exam (color): Normal for Ethnicity HEENT: Atraumatic, sinus tenderness Cardiovascular: Normal S1, Normal S2, No Murmurs Lungs: Normal Air Movement, decreased air entry at bases Abdomen: Soft, No Tenderness Neurological: Normal Speech Extremities: No Edema Last 24 Hrs of Lab/Riley Results Last 24 Hrs of Labs/Mics: Laboratory Tests 10/19/17 1410: CSF Glucose 68, CSF Total Protein 32 10/19/17 1410: CSF WBC 2, CSF RBC 3 H, CSF Comment 10/19/17 1315: Fluid WBC Cancelled, Fld Total RBCs Counted Cancelled 10/19/17 1315: Fluid Glucose Cancelled, Fluid Total Protein Cancelled Microbiology 10/19 1410 CENT N S: CSF Culture - RES 10/19 1410 CENT N S: Gram Stain - RES 10/19 1315 BODY FLUID: Body Fluid Culture - CAN Cancelled: CSF 10/19 1315 BODY FLUID: Gram Stain - CAN Cancelled: CSF Assessment/Plan Assessment: Ms. Ross is a 45-year-old female with a past medical history of chronic back pain status post laminectomy (2014), spinal fusion, recurrent Lyme disease who presents to the ED with CAMACHO x [address] imaging showed a 2 to 3 mm density in the subcortical left frontal lobe without surrounding edema or mass effect Assessment: #Headache #Generalized pain and weakness Plan: MRI brain showed carvenoma Monospot test negative LP not suspicious for meningitis No need for antibiotics for now. Lyme titers positive but given her history of positive Lyme it may be persistently positive in some patient Neuro suggested a trial of reglan, solu-medrol and magnesium. The patient denied to have the steroids. She said the concoction made little difference to her headache. She wishes to follow up with Dr Diego outside the hospital. can be discharged today. Diet: Regular DVT prophylaxis: ALPS Code: FULL Problem List: 1. Headache Pain Ratin Pain Location: none Pain Goal: Remain pain free Pain Plan: none Tomorrow's Labs & Rationales: none
--- NOTE | 2017-10-20 08:51 | PN- Att Addend ---
Attending Addendum Attending Brief Note Patient seen and examined. Plan of care discussed with the medical team and the patient. Available lab work and radiology test reports were reviewed. Her headache is a somewhat better this morning. She denies any nausea vomiting diarrhea fever chills or any neck stiffness. She wants to be discharged today. Assessment * Headache- improved * Medically unexplained symptoms syndrome- patient probably has been getting treatment with antibiotic for questionable chronic Lyme * Is to chronic back pain * History of laminectomy Plan * Discharge patient home today on ambulation * Patient probably will be following up with her PCP in [place] * Upon discharge we will not prescribe any antibiotics Exam: General: Patient awake alert oriented without any distress CVS: S1 plus S2 without any murmur or gallops Chest: Few scattered crepitation without any wheeze. There is no respiratory distress. 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 without any focal neuro deficit and follows commands appropriately; neck range of motion intact and there is no neck stiffness; no nystagmus noted Extremities: No edema; no clubbing or cyanosis noted Current Medications Sig/Madeleine Start time Last Medication Dose Route Stop Time Status Admin Acetaminophen 650 MG Q6P PRN 10/18 1430 AC PO Dextrose/Sodium 1,000 ML Q20H 10/19 0830 DC 10/19 Chloride IV 0829 Diazepam 5 MG BID PRN 10/18 1615 AC 10/19 PO 1827 Diphenhydramine HCl 25 MG .STK-MED ONE 10/19 1818 DC PO 10/19 1819 Hydromorphone HCl 0.2 MG Q4P PRN 10/18 1430 AC 10/19 IV 1929 Ibuprofen 800 MG Q8 10/19 2200 AC 10/20 PO 0534 Ibuprofen 800 MG .STK-MED ONE 10/19 2148 DC PO 10/19 2149 Lidocaine 0 .STK-MED ONE 10/19 1321 DC .ROUTE Magnesium Sulfate 1 GM ONCE ONE 10/19 2100 DC 10/19 Dextrose/Water 100 ML IV 10/20 0059 2146 Methylprednisolone 250 MG Q6H 10/19 1930 AC 10/19 Sodium Chloride 100 ML IV 10/20 1359 2218 Methylprednisolone 250 MG Q6 / 1907 DC IV 10/20 1201 Metoclopramide HCl 20 MG ONCE ONE 10/19 1915 DC 06/08 IV 10/19 1916 2145 Oxycodone/ 1 TAB Q6P PRN 10/18 1430 AC 10/18 Acetaminophen PO 1854 Patient Medication 1 ED ONE ONE 10/19 929 MT Teaching ED 10/19 930 Ramelteon 8 MG 2100 10/18 2100 AC 10/19 PO 2147 Sodium Chloride 1,000 ML Q10H 10/19 1914 DC 10/19 IV 10/20 Laboratory Tests 10/19/17 1410: CSF Glucose 68, CSF Total Protein 32 10/19/17 1410: CSF WBC 2, CSF RBC 3 H, CSF Comment 10/19/17 1315: Fluid WBC Cancelled, Fld Total RBCs Counted Cancelled 10/19/17 1315: Fluid Glucose Cancelled, Fluid Total Protein Cancelled 10/19/17 0940: PT 11.6, INR 1.06 10/19/17 0835: Infectious [place] Titer Cancelled 10/19/17 0601: Anion Gap 11, Estimated GFR > 60, BUN/Creatinine Ratio 21.7, CBC w Diff NO MAN DIFF REQ, RBC 3.85 L, MCV 91.6, MCH 31.4 H, MCHC 34.3, RDW 12.5, MPV 7.4, Gran % 64.5, Lymphocytes % 24.8, Monocytes % 9.6 H, Eosinophils % 0.5, Basophils % 0.6, Absolute Granulocytes 5.2, Absolute Lymphocytes 2.0, Absolute Monocytes 0.8 H, Absolute Eosinophils 0, Absolute Basophils 0 10/18/172044: Infectious [place] Titer NEGATIVE 10/18/172044: HIV 1&2 Ab Western Blot NONREACTIVE 10/18/17 1614: Methadone Screen Cancelled, Barbiturate Screen Cancelled, Ur Phencyclidine Scrn Cancelled, Amphetamines Screen Cancelled, U Benzodiazepines Scrn Cancelled, Urine Cocaine Screen Cancelled, Urine Cannabis Screen Cancelled 10/18/17 1050: Anion Gap 12, Estimated GFR > 60, BUN/Creatinine Ratio 25.0, Glucose 92, Calcium 9.6, Total Bilirubin 0.6, AST 22, ALT 21, Alkaline Phosphatase 37, Total Protein 7.5, Albumin 4.5, Globulin 3.0, Albumin/Globulin Ratio 1.5, TSH &T3 &Free T4 Intrp 1.900, Total Beta HCG NEGATIVE, CBC w Diff NO MAN DIFF REQ, RBC 4.37, MCV 91.2, MCH 31.8 H, MCHC 34.9, RDW 12.2, MPV 6.8 L, Gran % 60.9, Lymphocytes % 28.4, Monocytes % 8.1, Eosinophils % 1.3, Basophils % 1.3, Absolute Granulocytes 2.4, Absolute Lymphocytes 1.1 L, Absolute Monocytes 0.3, Absolute Eosinophils 0 , Absolute Basophils 0.1, ESR Westergren 10, Lyme Disease Antibody 4.32 *H 10/18/17 1022: Lyme Ab (Western Blot) Pending, Lyme IgG 18 kDa Band Pending, Lyme IgG 23 kDa Band Pending, Lyme IgG 28 kDa Band Pending, Lyme IgG 30 kDa Band Pending, Lyme IgG 39 kDa Band Pending, Lyme IgG 41 kDa Band Pending, Lyme IgG 45 kDa Band Pending, Lyme IgG 58 kDa Band Pending, Lyme IgG 66 kDa Band Pending, Lyme IgG 93 kDa Band Pending, Lyme IgM (Western Blot) Pending, Lyme IgM 23 kDa Band Pending, Lyme IgM 39 kDa Band Pending, Lyme IgM 41 kDa Band Pending 10/18/17 1014: Urine Opiates Screen < 100, Methadone Screen < 40, Barbiturate Screen < 60, Ur Phencyclidine Scrn < 6.00, Amphetamines Screen 144, U Benzodiazepines Scrn > 800 H, Urine Cocaine Screen < 50, Urine Cannabis Screen 78.90 H, Urine Color YEL, Urine Clarity CLDY H, Urine pH 6.0, Ur Specific [place] 1.025, Urine Protein NEG, Urine Ketones 15 H, Urine Nitrite NEG, Urine Bilirubin NEG@ICTO, Urine Urobilinogen 0.2, Ur Leukocyte Esterase TRACE H, Ur Microscopic SEDIMENT EXAMINED, Urine WBC 5-10 H, Ur Epithelial Cells MANY H, Urine Bacteria MANY H , Urine Hemoglobin NEG, Urine Glucose NEG Microbiology 10/19 1410 CENT N S: CSF Culture - RES 10/19 1410 CENT N S: Gram Stain - RES 10/19 1315 BODY FLUID: Body Fluid Culture - CAN Cancelled: CSF 10/19 1314 BODY FLUID: Gram Stain - CAN Cancelled: CSF 10/19 2055 BLOOD: Blood Culture - RES 10/18 204 BLOOD: Blood Culture - RES 10/18 1614 URINE ROUT: Legionella Antigen - CAN Cancelled: Cancelled via OE: Per Decision 10/18 1013 URINE ROUT: Legionella Antigen - RES 10/18 101 URINE ROUT: Streptococcus pneumoniae Antigen (M - RES 10/18 101 URINE ROUT: Urine Culture - RES Vital Signs Date Time Temp Pulse Resp B/P B/P Pulse O2 O2 Flow FiO2 Mean Ox Delivery Rate 10/20 599 97.6 70 20 94/54 97 Room Air 10/19 2136 98.3 69 18 100/55 98 10/19 1455 98.2 77 18 96/55 100 Room Air Intake & Output 10/20 1600 10/20 0800 10/20 0000 Intake Total 200 Output Total Balance 200 Intake, IV 200 CSF culture was negative after 1 day No organisms were seen on Gram stain
--- NOTE | 2017-10-22 07:52 | Discharge Summary ---
Visit Information Visit Dates Admission Date: 10/19/17 Discharge Date: 10/20/17 Hospital Course Course Attending Physician: Sendy Gillespie MD Primary Care Physician: Singer TORIBIO,[facility] [place] Course: Ms. Ross is a 45-year-old female with a past medical history of chronic back pain status post laminectomy (2014), spinal fusion, recurrent Lyme disease who presents to the ED with CAMACHO x [address] imaging showed a 2 to 3 mm density in the subcortical left frontal lobe without surrounding edema or mass effect Assessment: #Headache #Generalized pain and weakness Plan: MRI brain showed carvenoma Monospot test negative LP not suspicious for meningitis No need for antibiotics for now. Lyme titers positive but given her history of positive Lyme it may be persistently positive in some patient Neuro suggested a trial of reglan, solu-medrol and magnesium. The patient denied to have the steroids. She said the concoction made little difference to her headache. She wishes to follow up with Dr Diego outside the hospital. can be discharged today. Allergies: Coded Allergies: No Known Allergies (03/05/16) Pertinent Lab Results: 10/18/17 EXAM TYPE: RAD - XRY-CHEST XRAY, TWO VIEWS FINDINGS: The cardiomediastinal silhouette appears normal. The lungs are clear. No consolidation, pulmonary edema, pleural effusion, pneumothorax. Minor degenerative change of the spine without evidence of acute osseous abnormality. IMPRESSION: No acute abnormality. 10/18/17 EXAM TYPE: CAT - CT HEAD WO IV CONTRAST IMPRESSION: A 2 to 3 mm density in the subcortical left frontal lobe without surrounding edema or mass effect, nonspecific. This may reflect a tiny cavernoma or microhemorrhage. This critical result was communicated with Dr. Solitario at 13:30 on 10/18/2017 and the content and urgency was understood at the time of direct communication. 10/18/17 EXAM TYPE: CAT - CT LUMB SPINE WO IV CONTRAST IMPRESSION: 1. No acute abnormality. 2. L5-S1: Discectomy, interbody fusion device placement, posterior decompression and posterior instrumented fusion, stable from 2016. There is mild subsidence along the endplates with moderate endplate sclerosis, unchanged. There is a similar amount of osseous bridging across the interbody fusion device. Asymmetric posterior osteophytic ridging on the right results in mild bony right-sided foraminal stenosis, stable. Otherwise the canal and foramina are obscured by streak artifact from the hardware. 3. Elsewhere stable mild multilevel spondylosis. 10/18/17-1337 EXAM TYPE: MRI - MRI-HEAD W & W/O ELIEL IMPRESSION: The small focus of increased density within the left subinsular region appreciated on today's earlier head CT exhibits susceptibility artifact and no associated parenchymal signal abnormality, findings most suggestive of a small cavernoma. No pathologic enhancement and no MRI evidence of acute intracranial hemorrhage. 10/19/17- EXAM TYPE: CAT - CT NECK W IV CONTRAST IMPRESSION: 1. No cervical lymphadenopathy and no masses are demonstrated in the mediastinum or chest. 2. BB markers are positioned over the bilateral submandibular glands which are slightly symmetrically prominent, unchanged. 10/19/17 EXAM TYPE: IR - FLUORO NEEDLE GUIDANCE; INTERVENTIONAL SETUP IMPRESSION: Fluoroscopic-guided lumbar puncture as described. PLAN: The patient was stable after the procedure and was transferred to the interventional recovery area. The patient will be transferred to the floor. Disposition Summary Disposition Principal Diagnosis: Intractable headache Additional Diagnosis: Chronic Lyme Discharge Disposition: home or self care Discharge Instructions General Discharge Information Code Status: Full Code Patient's Diet: Regular Patient's Activity: As tolerated Follow-Up Instructions/Appts: Please follow up with your PCP and neurologist within one week of discharge. Medications at Discharge Discharge Medications: Stop taking the following medications: Doxycycline Hyclate (Doxycycline Hyclate) 100 MG TABLET ORAL TWICE DAILY Rifampin (Rifampin) 150 MG CAPSULE ORAL DAILY Qty = 30 Tetracycline HCl (Tetracycline HCl) 250 MG CAPSULE ORAL TWICE DAILY Continue taking these medications: Diazepam (Valium) 10 MG TABLET 0.5 Tablet ORAL 2 x Daily as needed as needed for PAIN Comments: Last Taken: 10/19/17 Time: 1826 Gabapentin Enacarbil (Horizant) 600 MG TABLET.ER 1 Tablet ORAL THREE TIMES DAILY Comments: NOT GIVEN Trazodone HCl (Trazodone HCl) 50 MG TABLET 1 Tablet ORAL THREE TIMES DAILY Comments: NOT GIVEN Copies To: Brandie TORIBIO,Dominik Brito; Rachel TORIBIO,Giovanni Pruett; Singer TORIBIO,Kam
== END 2017-10-20 10:22 | DRG 103 ==
LOC: ERH 09:00 → ERHI 14:19 → ENRESERV 16:04 → ENTRNSPT 16:43 → EDTRNSPTSTS 16:51 → EDTRNSPT 16:51 → 2NB 17:00 → CMPTRNSPT 18:04 → 2NB 10-19 11:14 → ENPENDDIS 10-20 09:28 → ENTRNSPT 10-20 10:04 → EDTRNSPTSTS 10-20 10:12 → EDTRNSPT 10-20 10:12 → 2NB 10-20 10:22 → CMPTRNSPT 10-20 10:32
PROVIDERS: Emergency Medicine; Student in an Organized Health Care Education/Training Program
PROC: 009U3ZX Drainage of Spinal Canal, Percutaneous Approach, Diagnostic (ICD-10-PCS; principal; 2017-10-19)
DX: G43.909 Migraine, unspecified, not intractable, without status migrainosus (principal); A69.20 Lyme disease, unspecified; G89.29 Other chronic pain; M54.9 Dorsalgia, unspecified; F41.9 Anxiety disorder, unspecified; D72.819 Decreased white blood cell count, unspecified; F32.9 Major depressive disorder, single episode, unspecified; G51.0 Bell's palsy; R59.0 Localized enlarged lymph nodes; Z96.649 Presence of unspecified artificial hip joint; Z90.710 Acquired absence of both cervix and uterus; Z98.1 Arthrodesis status
CPT/HCPCS: 2NBSP; 70552; 86618; 87070; 87075; 87205; 36415; 36592; 70553; 71046; 77002; 80307; 81001; 82436; 87040; 87086; 87389; 87449; 87450; 96374; 96375; 96376; A9579; J1885; J2765; J2920; J2930; J7042